=== PATIENT | female | born 1965 ===

== ENCOUNTER 2018-03-10 07:52 | Day surgery (SDC) | payer BC ==
[2018-03-10 08:15] VITALS: BMI 27.9
[2018-03-10 08:36] VITALS: O2SAT 100
[2018-03-10] MEDS ORDERED: Propofol 10 mg/ml Inj (20 ML) ONE ×4 (09:34→10:41)
[2018-03-10] MEDS ORDERED: Midazolam 2 MG/2 ML VIAL ONE (09:35)
[2018-03-10 11:06] VITALS: TEMP 97.1
[2018-03-10 12:27] VITALS: BP 131/75; PULSE 58; RESP 11
== END 2018-03-10 12:20 | disposition home or self-care (01) ==
LOC: C.ENDO 07:52
PROVIDERS: ATTEND Internal Medicine Gastroenterology
DX: K52.9 Noninfective gastroenteritis and colitis, unspecified (principal); K64.0 First degree hemorrhoids; D12.0 Benign neoplasm of cecum